=== PATIENT | male | born 1975 | race Caucasian/White ===

== ENCOUNTER 2020-11-08 22:12 | Emergency (ER) | payer BC, OTHER ==
--- NOTE | 2020-11-08 22:45 | EDM.PDOC ---
ED HPI GENERAL MEDICAL PROBLEM - General Chief Complaint: Cardiovascular Problem Stated Complaint: POSS BLOOD CLOT RIGHT LEG Time Seen by Provider: 11/08/20 22:33 Source of Information: Reports: Patient, Family ( + child) History Limitations: Reports: No Limitations - History of Present Illness INITIAL COMMENTS - FREE TEXT/NARRATIVE: Mr. Lopez is a very pleasant 45-year-old gentleman who was sent to the ED from the walk-in clinic in order to undergo a Doppler ultrasound of his right lower extremity. The patient states that he has had crampy discomfort in his right calf for about 3 days, then noticed that his right leg appeared to be swollen, today. No prior similar symptoms. No recent injury to the right leg. No associated chest pain, palpitations, or dyspnea. The patient went to the walk-in clinic for evaluation. Blood work was drawn, which demonstrated a D-dimer elevated at 3.31. Other blood work was reportedly unremarkable. Here in the ED, the patient is found to be hemodynamically stable, afebrile, saturating 97% on room air. He appears to be comfortable, in no acute distress. Prior to 3 days ago, the patient denies having a recent fever, chills, sore throat, ear pain, nasal or sinus congestion, cough, dyspnea, chest pain, palpitations, nausea, vomiting, constipation, diarrhea, abdominal pain, urinary symptoms, recent weight gain or weight loss, recent bloody bowel movements or black bowel movements, recent joint aches, headaches, or rashes. The patient's PCP is Dr. Humberto Noyola. right Pain Score (Numeric/FACES): 2 - Related Data Allergies Allergy/AdvReac Type Severity Reaction Status Date / Time cortisone Allergy Itching Verified 11/08/20 22:25 Penicillins Allergy Hives Verified 11/08/20 22:25 Past Medical History Gastrointestinal History: Reports: GERD - Infectious Disease History Infectious Disease History: Reports: Novel Coronavirus (dx'd Apr 2020) - Past Surgical History HEENT Surgical History: Reports: Oral Surgery (dental extractions) Musculoskeletal Surgical History: Reports: Arthroscopic Knee (left), Other (See Below) (Right ankle arthroscopy) Social & Family History - Tobacco Use Tobacco Use Status *Q: Current Every Day Tobacco User Years of Tobacco use: 29 Packs/Tins Daily: 0.5 Tobacco Use Comment: Started smoking 1991 - Alcohol Use Alcohol Use History: Yes Alcohol Use Frequency: Socially - Recreational Drug Use Recreational Drug Use: No - Living Situation & Occupation Living situation: Reports: , with Spouse, with Family (1 child) Occupation: Employed ([employer]) ED ROS GENERAL - Review of Systems Review Of Systems: Comprehensive ROS is negative, except as noted in HPI. ED EXAM, GENERAL - Physical Exam Exam: See Below Exam Limited By: No Limitations General Appearance: Alert, WD/WN, No Apparent Distress Extremities: Normal Inspection, Normal Range of Motion, Non-Tender, Normal Capillary Refill, Other (No visible abnormality to the right leg when compared to the left. There is trace1+ pitting edema to both legs. The right mid-calf circumference is 35 cm, while the left is 35.5 cm. Neurovascular status of both lower extremities is intact.) Course - Vital Signs Last Recorded V/S: Last Vital Signs Temp 36.5 C 11/08/20 22:17 Pulse 74 11/08/20 22:17 Resp 20 11/08/20 22:17 BP 130/90 11/08/20 22:17 Pulse Ox 97 11/08/20 22:17 - Orders/Labs/Meds Orders: Active Orders 24 hr Category Date Time Status VL Duplex Lwr Ext Veins Ltd Rt [US] Stat Exams 11/08/20 22:35 Taken Labs: Laboratory Tests 11/08/20 11/08/20 11/08/20 Range/Units 22:50 22:50 22:50 WBC 7.09 (4.23-9.07) K/mm3 RBC 4.69 (4.63-6.08) M/mm3 Hgb 14.3 (13.7-17.5) gm/dl Hct 39.6 L (40.1-51.0) % MCV 84.4 (79.0-92.2) fl MCH 30.5 (25.7-32.2) pg MCHC 36.1 H (32.2-35.5) g/dl RDW Std Deviation 37.1 (35.1-43.9) fL Plt Count 177 (163-337) K/mm3 MPV 9.7 (9.4-12.3) fl Neutrophils % (Manual) 49 (40-60) % Band Neutrophils % 0 (0-10) % Lymphocytes % (Manual) 36 (20-40) % Atypical Lymphs % 0 % Monocytes % (Manual) 9 (2-10) % Eosinophils % (Manual) 5 (0.8-7.0) % Basophils % (Manual) 1 (0.2-1.2) Platelet Estimate Adequate RBC Morph Comment Normal PT 10.3 (9.7-12.0) SECONDS INR 0.96 APTT 24.8 (21.7-31.4) SECONDS Sodium 142 (136-145) mEq/L Potassium 3.5 (3.5-5.1) mEq/L Chloride 106 (98-107) mEq/L Carbon Dioxide 25 (21-32) mEq/L Anion Gap 14.5 (5-15) BUN 13 (7-18) mg/dL Creatinine 1.1 (0.7-1.3) mg/dL Est Cr Clr Drug Dosing 93.08 mL/min Estimated GFR (MDRD) > 60 (>60) mL/min BUN/Creatinine Ratio 11.8 L (14-18) Glucose 96 (70-99) mg/dL Calcium 8.2 L (8.5-10.1) mg/dL Total Bilirubin 0.6 (0.2-1.0) mg/dL AST 15 (15-37) U/L ALT 27 (16-63) U/L Alkaline Phosphatase 80 (46-116) U/L Total Protein 6.5 (6.4-8.2) g/dl Albumin 3.5 (3.4-5.0) g/dl Globulin 3.0 gm/dL Albumin/Globulin Ratio 1.2 (1-2) - Re-Assessments/Exams Free Text/Narrative Re-Assessment/Exam: 11/08/20 22:42 As above, the patient has had a crampy discomfort in his right leg for the past 3 days, then noticed that his right leg appeared to be swollen today. No recent chest pain, palpitations, or dyspnea. He went to the walk-in clinic earlier today, where a D-dimer was found to be elevated at 3.31. He was sent here for Doppler ultrasound of the right lower extremity. On examination, the patient has trace to 1+ pitting edema in both legs. His right mid-calf circumference is 35 cm, while his left mid-calf circumference is actually a little larger at 35.5 cm. Neurovascular status of both lower extremities is normal. I have ordered a work-up that includes a CBC, CMP, coags - in the event that the patient requires anticoagulation - and a Doppler ultrasound of the right lower extremity. 11/09/20 01:02 The patient's CBC is remarkable for a Hct slightly depressed at 39.6, but with a Hgb normal at 14.3, with the remainder of his CBC being unremarkable. His CMP is unremarkable. His coags are within normal limits. Doppler ultrasound of the right lower extremity is read by [facility] as: 1. No evidence of deep vein thrombosis. 2. Superficial thrombophlebitis within the superficial vein in the right calf. 11/09/20 01:05 Test results discussed with the patient and his . His right leg discomfort may be due to a cramp, but is not due to a DVT. I will discharge him home. Departure - Departure Time of Disposition: 01:05 Disposition: Home, Self-Care 01 Condition: Good Clinical Impression: Right leg pain Referrals: Humberto Noyola MD [Primary Care Provider] - Forms: ED Department Discharge Additional Instructions: You were seen in the emergency room for 3 days of right leg pain with swelling noticed today. Your D-dimer was found to be elevated at the walk-in clinic. Work-up in the ER included some blood work and a Doppler ultrasound of your right lower extremity. Your entire work-up was unremarkable. You are not anemic. You do not have a deep vein thrombosis. The cause of your right leg pain is not entirely clear, but could be due to a muscle cramp. We recommend that you take [id number] ibuprofen, 3 tablets (600 mg) up to every 8 hours, with food, as needed for discomfort. If your leg pain persist, please follow-up with your PCP, Dr. Humberto Noyola, for further evaluation. If any other problems, please do not hesitate to return to the ER. Sepsis Event Note (ED) - Evaluation Sepsis Screening Result: No Definite Risk - Focused Exam Vital Signs: Vital Signs Temp Pulse Resp BP Pulse Ox 11/08/20 22:17 36.5 C 74 20 130/90 97 - My Orders Last 24 Hours: My Active Orders 11/08/20 22:35 VL Duplex Lwr Ext Veins Ltd Rt [US] Stat - Assessment/Plan Last 24 Hours: My Active Orders 11/08/20 22:35 VL Duplex Lwr Ext Veins Ltd Rt [US] Stat
--- NOTE | 2020-11-09 14:56 | US ---
Right lower extremity deep venous ultrasound: Duplex and color Doppler evaluation was obtained of the right common femoral, proximal greater saphenous, superficial femoral, popliteal, posterior tibial and peroneal veins. Left common femoral vein was also evaluated. Comparison: No prior venous imaging is available. Findings: Small amount of intraluminal material is seen within the right calf superficial vein compatible with thrombophlebitis. Visualized deep veins show normal augmentation, compression and phasic flow. Impression: 1. Mild superficial thrombophlebitis within the right calf. 2. No findings of deep venous thrombosis are seen within the right lower extremity or within the left common femoral vein. Diagnostic code #3 I agree with preliminary report from [facility], finalized on 11/09/20, 1:49 AM CDT, code 1
== END 2020-11-09 01:13 | disposition home or self-care (01) ==
LOC: JD.ED 22:12
DX: M79.604 Pain in right leg (principal); Z86.16 Personal history of COVID-19; Z88.0 Allergy status to penicillin; Z88.8 Allergy status to other drugs, medicaments and biological substances; Z72.0 Tobacco use
CPT/HCPCS: 36415; 80053; 85007; 85027; 85610; 85730; 93971-26-RT; 93971-RT; 99283; 99284-25